=== PATIENT | female | born 1960 | race Caucasian/White ===

== ENCOUNTER → 2023-04-09 07:48 | Outpatient (CLI) | payer MEDICARE, OTHER, SELFPAY ==
--- NOTE | 2023-04-09 | DI.ECHO.S_ITS ---
[facility] +---------+ : : [address] [place] : : : : [id number] : : : : Phone: [phone]+ Echocardiogram Report + + :Name: SOFIA SHARPE Study Date: 04/09/2023 Height: 64 in : :[facility] ReadingLocation: Weight: 192 lb : : Gender: Female BSA: 1.9 m2 : :: 1960 Age: 63 yrs BP: 167/100 mmHg: :Reason For Study: Hypertension : :Ordering Physician: : :MARCIANO SWANSON Performed By: Jes Edgar : :Referring: MARCIANO SWANSON : + + Interpretation Summary BP taken after the exam was 173/112 mmHg. Patient was advised to monitor blood pressure at home and if experiencing any stroke like symptoms to go to the ED. The left ventricle is normal in size. The ejection fraction is estimated to be 50-55%. There is anterolateral wall hypokinesis. There is posterolateral wall hypokinesis. Diastolic parameters suggest probable normal left ventricular diastolic function and normal filling pressures. The right ventricle is normal in size and function. The right ventricular systolic pressure is estimated to be at least 21 mmHg based on an estimated right atrial pressure of 3 mm Hg. The left atrial size is normal. There is mild to moderate mitral regurgitation. There is no other significant valvular heart disease. The aortic root is normal size. Recommend urgent outpatient ischemic evaluation if asymptomatic. Procedure: A two-dimensional transthoracic echocardiogram with color flow and Doppler was performed. The study quality was technically adequate. There is no prior echocardiogram noted for this patient. Left Ventricle: The left ventricle is normal in size. The ejection fraction is estimated to be 50-55%. There is anterolateral wall hypokinesis. There is posterolateral wall hypokinesis. Diastolic parameters suggest probable normal left ventricular diastolic function and normal filling pressures. Right Ventricle: The right ventricle is normal in size and function. Atria: The left atrial size is normal. Right atrial size is normal. There is no Doppler evidence for an interatrial shunt. Mitral Valve: The mitral valve leaflets appear borderline thickened, but open well. There is no mitral valve stenosis. There is mild to moderate mitral regurgitation. Aortic Valve: The aortic valve is trileaflet. The aortic valve opens well. There is no aortic valve stenosis. No aortic regurgitation is present. Tricuspid Valve: The tricuspid valve is normal. There is no tricuspid stenosis. There is trace tricuspid regurgitation. The right ventricular systolic pressure is estimated to be at least 21 mmHg based on an estimated right atrial pressure of 3 mm Hg. Pulmonic Valve: The pulmonic valve is not well visualized. There is no pulmonic valvular stenosis. There is trace pulmonic regurgitation. There is no other significant valvular heart disease. Great Vessels: The aortic root is normal size. The ascending aorta is normal in size. The pulmonary artery is normal size. The IVC is of normal diameter and collapses greater than 50% with a sniff. This suggests a low right atrial pressure of 3 mm Hg. Pericardium/ Pleura There is no pericardial effusion. There is no pleural effusion. MMode/2D Measurements & Calculations LVIDd: 4.9 cm LVOT diam: 2.0 cm LVIDs: 4.4 cm Ao root diam: 3.1 cm FS: 10.2 % asc Aorta Diam: 3.3 cm EPSS: 0.80 cm IVSd: 1.1 cm LVPWd: 1.0 cm LV hurst. diameter/BSA (cm/m^2): 2.5 LV sys. diameter/BSA (cm/m^2): 2.3 LA A2 area: 19.0 cm2 RA long axis: 4.7 cm LA A4 area: 14.8 cm2 RA area: 12.1 cm2 LA length (vol): 5.3 cm RA vol: 26.3 ml LA vol: 45.2 ml RA : 13.7 ml/m2 LA vol index: 23.5 ml/m2 RVD1 (basal): 3.0 cm LVLs ap4: 6.4 cm LVLd ap2: 7.2 cm TAPSE_phl: 2.3 cm LVLs ap2: 6.0 cm Doppler Measurements & Calculations Ao V2 max: 140.5 cm/sec LVOT Max Pawel: 109.0 cm/sec Ao V2 mean: 95.8 cm/sec LV V1 max P.8 mmHg Ao max P.0 mmHg LV V1 VTI: 23.3 cm Ao mean P.0 mmHg DEEP(I,D): 2.4 cm2 Ao V2 VTI: 30.1 cm DEEP(V,D): 2.4 cm2 sev ratio: 0.78 DEEP indexed to BSA (cm^2/m^2): 1.3 MV E max pawel: 84.7 cm/sec TR max pawel: 211.4 cm/sec MV A max pawel: 78.8 cm/sec TR max P.9 mmHg MV E/A: 1.1 PA V2 max: 122.0 cm/sec Med Peak E' Pawel: 8.2 cm/sec PA V2 mean: 80.2 cm/sec E/E' med: 10.4 PA mean P.0 mmHg Lat Peak E' Pawel: 7.1 cm/sec PA pr(Accel): 38.5 mmHg E/E' lat: 11.9 E/e' average: 11.1 MV dec time: 0.20 sec SV(LVOT): 73.2 ml AV VR_phl: 0.77 DEEP(VTI)/BSA_phl: 1.3 Reading Physician:09:48 AM
== END ==
PROVIDERS: Referring Provider Nurse Practitioner Family; Visit Provider Nurse Practitioner Family
DX: I49.3 Ventricular premature depolarization (principal); I49.9 Cardiac arrhythmia, unspecified; I10 Essential (primary) hypertension; I34.0 Nonrheumatic mitral (valve) insufficiency
CPT/HCPCS: 93306

== ENCOUNTER → 2024-09-14 11:05 | Outpatient (CLI) | payer MEDICARE, OTHER, SELFPAY ==
--- NOTE | 2024-09-14 11:07 | DI.MG.S_ITS ---
MM screening mammo BI: 09/14/2024. BI-RADS: 1 CLINICAL: 64-year old female for bilateral screening mammogram. Tyrer-Cuzick lifetime risk of 5.5%. No personal or first-degree family history of breast cancer. PRIOR EXAMS: No prior examinations available. MAMMOGRAPHY TECHNIQUE: 2D and 3D (tomosynthesis) digital mammographic views obtained, with additional images as needed for full coverage. Current study was also evaluated with a Computer Aided Detection (CAD) system. DENSITY B. There are scattered areas of fibroglandular density. MAMMOGRAPHY FINDINGS Bilateral: No suspicious mass, asymmetry, microcalcification, or other abnormality seen. IMPRESSION: * No evidence of malignancy. RECOMMENDATIONS * Previous exam(s) should be sought for comparison and, if obtained, an addendum will be issued. Bilateral * Annual screening mammography. OVERALL ASSESSMENT CATEGORY BI-RADS-1: Negative. The [employer] recommends annual screening mammography beginning at age 40 for women with average risk of breast cancer. ELECTRONICALLY SIGNED: Arleen Sunshine M.D. on 09/14/2024 at 04:20:08 PM PT Interpreting Station ID: [id number]
== END ==
PROVIDERS: Family Provider Nurse Practitioner Family; PCP Nurse Practitioner Family; Referring Provider Nurse Practitioner Family; Visit Provider Nurse Practitioner Family
DX: Z12.31 Encounter for screening mammogram for malignant neoplasm of breast (principal)
CPT/HCPCS: 77063; 77067

== ENCOUNTER → 2024-09-14 11:08 | Outpatient (CLI) | payer MEDICARE, OTHER, SELFPAY ==
--- NOTE | 2024-09-14 11:10 | DI.RAD.S_ITS ---
PROCEDURE: XR DEXA AXIAL SKELETON INDICATIONS: OSTEOPENIA,MENOPAUSAL DISORDERS COMPARISON: None. FINDINGS: Lumbar Spine: Bone mineral density 0.854 g/cm2, T score -1 1. Left Femoral Neck: Bone mineral density 0.625 g/cm2, T score -2.0. Left Hip: Bone mineral density 0.761 g/cm2, T score -1.5. Fracture Risk Calculation (when applicable): 10-year fracture risk of a major osteoporotic fracture 10 percent and of a hip fracture 1.4 percent. (T score greater or equal to -1.0 to: NORMAL) (T score from -1.1 to -2.4: OSTEOPENIA) (T score less than or equal to -2.5: OSTEOPOROSIS) IMPRESSION: Osteopenia, most prominent in the left femoral neck. Follow-up guidelines as follows: Osteoporosis: Consider a repeat DEXA and Vertebral Fracture Assessment (VFA) exam in 2 years or sooner if medically necessary, to reassess this patient's status. Osteopenia: Consider a repeat DEXA in 2-3 years to reassess this patient's status, or if there is a new clinical indication. Normal: Consider a repeat DEXA in 5 years or sooner, or if there is a new clinical indication. All treatment decisions require clinical judgment and consideration of individual patient factors, including patient preferences, comorbidities, previous drug use, risk factors not captured in the FRAX model (e.g., frailty, falls, vitamin D deficiency, increased bone turnover, interval significant decline in bone density ) and possible under- or over-estimation of fracture risk by FRAX. In addition, the NOF Guide recommends that FDA-approved medical therapies be considered in postmenopausal women and men age >= 50 years with a: * Hip or vertebral (clinical or morphometric) fracture * T-score of <=-2.5 at the spine or hip * Ten-year fracture probability by FRAX of >= 3% for hip fracture or >=20% for major osteoporotic fracture. Dictated by: Salome Aranda M.D. on 09/14/2024 at 12:54 Approved by: Salome Aranda M.D. on 09/14/2024 at 12:54
== END ==
PROVIDERS: Family Provider Nurse Practitioner Family; PCP Nurse Practitioner Family; Referring Provider Nurse Practitioner Family; Visit Provider Nurse Practitioner Family
DX: N95.8 Other specified menopausal and perimenopausal disorders (principal); M85.89 Other specified disorders of bone density and structure, multiple sites
CPT/HCPCS: 77080